=== PATIENT | female | born 1990 | race Hispanic/Latino ===

== ENCOUNTER 2019-03-13 17:31 | Outpatient (AMB) | payer MEDICAID, SELFPAY ==
--- NOTE | 2019-03-13 17:40 | UCVISIT ---
Intake Ht./Wt. Decline/Exclusions Patient Declined Height and Weight this visit: No PT Meets exclusion criteria: No Vital Signs 03/13/19 17:41 Height 5 ft 3 in Height Method Measured Weight 66.224 kg Weight Measurement Method Standing Scale BMI 25.8 Temp 101.4 F H Temp Source Temporal Artery Scan Pulse 132 H Pulse Source Monitor Respiration 20 BP 127/83 Blood Pressure Source Automatic Cuff Blood Pressure Location Left Upper Arm Position Sitting Pulse Oximetry (%) 98 Oxygen Delivery Method Room Air Comment pt is 20 weeks Intake Zika Travel: No Been in contact w/anyone who has been Dx w/Zika Virus: No Been in contact w/anyone sick during travel outside country: No Patient >or equal to 18 years BMI outside of range 18.5-24.9: Yes Visit Reasons: UC Cough Primary Care Provider: Osman Cruz Is patient in pain?: Yes Pain Location:: low abd [place]/Numerical: 5 Pain Scale Used: Numeric (1 - 10) Triage Triage Allergy / Med Rec Allergies No Known Allergies Allergy (Verified 03/13/19 17:47) Medication Reconciliation Vitamin * 1 tab PO QDAY #0 tab 12/21/13 [History Confirmed 03/13/19] Band Placement: Patient Identification FRANCO: 3-Urgent Arrival Mode of Arrival: Private Vehicle Method of Arrival: Ambulatory Accompanied By: Self Prehospital Treatment: albuterol inhaler PCP or OBGYN visit in last 3 months: Yes Language Preferred Language: [place] New Car Make Ready Mechanic Required: No Female History Now: Yes Weeks Gestation: 20 Expected Date of Delivery: 07/26/19 : No Social History Alcohol / Drugs Hx Alcohol Use: No Hx Substance Use: No Safety Do You Feel Safe at Home: Yes Authorities Contacted: N/A Mirza Fall Scale Special Populations Patient Comatose, Paralyzed or Immobile: No Patient Under the Age of 44 Years Old: No Assessment History of falling; immediate or within 3 months: No Secondary diagnosis: No Ambulatory aid: None IV Infusion: No Gait/Transferring: Normal/bedrest/immobile Mental Status: Oriented to own ability Score Score: 0 Risk Level/Action Risk Level: Low Risk Action: Good Basic Nursing Care Fall Star Level 1 Fall Star Level 1: Yes Patient Education Topic Education Topics: Plan of Care Teaching Recipient: Patient Readiness, Motivation to Learn: Active Methods: Verbal instruction Educ Materials Suggested by INFO Button/Rx Monograph Given: No Response: Verbalize Understanding New Car Make Ready Mechanic Required: No Population [facility] Hx Congestive Heart Failure: No Hx Diabetes Mellitus Type 1: No Hx Diabetes Mellitus Type 2: No Hx Renal Disease: No Hx Chronic Obstructive Pulmonary Disease (COPD): No Past Medical History Reviewed and agree with Nursing documentation.: Yes Past Medical History History Provided By: Patient Past Medical History: Yes Cardiac Medical History Hx Congestive Heart Failure: No Endocrine Medical History Hx Diabetes Mellitus Type 1: No Hx Diabetes Mellitus Type 2: No Genitourinary Medical History Hx Renal Disease: No Respiratory Medical History Hx Asthma: Yes Hx COPD: No HPI Cough Pulmonary Results: No Data to Display HPI Comments Details: 29-year-old female who is currently 20 weeks complains of abdominal cramping cough for 2 days and fever that started today. She also endorses generalized fatigue and malaise. Review of Systems (UC) Review of Systems All systems reviewed & no additional complaints except as documented Const Constitutional: Denies body ache, Denies chills, Reports fatigue and Reports headache(s) Eyes Eyes: Denies blurry vision and Denies bulging eyes ENT Ears. Nose, Mouth, and Throat: Denies ear pain, Denies facial pain and Reports headache(s) Card Cardiovascular: Denies chest pain and Denies chest pain at rest Resp Respiratory: Reports chest congestion, Reports cough and Denies coughing up blood Musc Musculoskeletal: Reports body aches Neuro Neurologic: Reports headache(s) Endo Endocrine: Reports fatigue Exam (UC) Limitations: no limitations General Appearance: alert, in no apparent distress, comfortable, cooperative, healthy appearing, well developed and well groomed Head exam: atraumatic, normocephalic and normal inspection ENT exam: Present normal exam, normal external ear exam, TM's normal bilaterally, normal oropharynx and mucous membranes moist SPO2%: 98% SPO2 type: Room Air SPO2% Normal/Abnormal: Normal Respiratory exam: Present normal lung sounds bilaterally, normal respiratory effort, able to speak in complete sentences and clear to ascultation bilaterally Cardiovascular exam: Present regular rate and regular rhythm Abdominal tenderness: Present LLQ, mild and suprapubic Office Procedures UC Level of Care Nursing/Assessment/Reassessment Patient Status: Established Patient Nursing Assessment/Reassessment: Triage Asessment, Initial Vital Signs and RN General Assessments Coordination of Care: DC Instructions Simple Established Patient Charge Established Patient Point Assignment: 40 Established Patient Point Assignment: EP Level 2 (40-75) Procedures: Pulse Ox reading: Yes UC Refer Patient to ED Yes (referral paperwork completed and sent with patient to the ER) Supplemental Info Due to the patient's status patient encouraged to go to the ED to be cleared by OB department Assessment and Plan Assessment & Plan (1) Fever: (2) Abdominal cramping affecting : Plan - Lola Leong PA-C: Go to ED for further care (3) Abdominal pain during : Plan Details Other Orders: Orders: UC Refer Patient to ED Today Primary Care Provider: Osman Cruz Instructions: Abdominal Pain ED Fever Unconf Cause Additional Information PA/EDGE DYER Supervising Physician: Meliton Zapata DC Evaluation Discharge Information Seen, Treated and Released by Provider: No Left Prior to Receiving Discharge Instructions: No Transfer to Outside Facility: No Vital Signs Vitals Signs N/A: Yes Medication Medication Given this Visit: No Discharge Information Condition on Discharge: Stable Mode of Discharge: Ambulatory Discharge Transportation: Private Vehicle Instructions New Car Make Ready Mechanic Required: No Discharge Instructions Given To: Patient Was Follow up Care Ordered: Yes Verbalizes Understanding of Discharge Instructions: Yes [facility] information card provided?: No Patient plan follow up w/PCP for [facility]: No
[2019-03-13 17:41] VITALS: BP 127/83; PULSE 132; RESP 20; TEMP 38.6; O2SAT 98; BMI 25.8
== END 2019-03-13 18:09 | disposition home or self-care (01) ==
PROVIDERS: Visit Provider Physician Assistant